=== PATIENT | female | born 1960 | race Caucasian/White ===

== ENCOUNTER 2019-10-05 10:26 | Inpatient (IN) | payer MEDICARE, MEDICAID ==
[~2019-10-05] VITALS: Ht 167.6 cm; Wt 80.6 kg
[2019-10-05 14:25] VITALS: BP 125/73
[2019-10-05] MEDS ORDERED: HALOPERIDOL 5 MG TABLET PO PRN (14:30)
[2019-10-05] MEDS ORDERED: LORazepam 2 MG TABLET PO PRN (14:30)
[2019-10-05] MEDS ORDERED: ZOLPIDEM TARTRATE 10 MG TABLET PO PRN (14:30)
[2019-10-05] MEDS: OLANZapine 5 MG TABLET PO SCH (16:30)
[2019-10-05 17:34] VITALS: BP 111/64
[2019-10-05] MEDS ORDERED: ONDANSETRON HCL 4 MG TABLET PO PRN (21:00)
[2019-10-05] MEDS ORDERED: CloNIDine HCL 0.1 MG TABLET PO PRN (21:00)
[2019-10-05] MEDS ORDERED: ACETAMINOPHEN 325 MG TABLET PO PRN (21:00)
[2019-10-05] MEDS ORDERED: GuaiFENesin/D-METHORPHAN [SUGAR-FREE] 200-20MG/10 ML SYRUP UDCUP PO PRN (21:00)
[2019-10-05] MEDS ORDERED: DOCUSATE SODIUM 100 MG CAPSULE PO PRN (21:00)
[2019-10-05] MEDS ORDERED: PETROLATUM,WHITE 28 GM JELLY TP PRN (21:00)
[2019-10-05] MEDS ORDERED: NICOTINE 14 MG/24 HOUR PATCH TD PRN (21:00)
[2019-10-05] MEDS ORDERED: IBUPROFEN 400 MG TABLET PO PRN (21:00)
[2019-10-05] MEDS ORDERED: MAG HYDROX/AL HYDROX/SIMETH ES 30 ML SUSPENSION UDCUP PO PRN (21:00)
[2019-10-05] MEDS ORDERED: ALBUTEROL SULFATE HFA 90 MCG/PUFF 8 GM INHALER IH PRN (21:00)
[2019-10-05] MEDS ORDERED: MAGNESIUM HYDROXIDE SUSPENSION 30 ML UDCUP PO PRN (21:00)
[2019-10-05] MEDS ORDERED: LOPERAMIDE HCL 2 MG CAPSULE PO PRN (21:00)
[2019-10-06 05:37] LABS: GLUCOMETER DEV NAME(LOC) 3E.I 2; GLUCOSE,POINT OF CARE 117 MG/DL (70-110)
[2019-10-06 08:00] VITALS: BP 119/83
[2019-10-06 08:41] LABS: CHOL/HDL RATIO 4.9 (3.9-5.7); FREE T4 (FREE THYROXINE) 1.3 ng/dL (0.76-1.46); THYROID STIMULATING HORMONE 1.24 uIU/mL (0.36-3.74)
[2019-10-06] MEDS: OLANZapine 5 MG TABLET PO SCH ×2 (09:02→16:55)
[2019-10-06] MEDS ORDERED: ONDANSETRON HCL 4 MG TABLET PO PRN (19:15)
[2019-10-06] MEDS ORDERED: DOCUSATE SODIUM 100 MG CAPSULE PO PRN (19:15)
[2019-10-06] MEDS ORDERED: IBUPROFEN 400 MG TABLET PO PRN (19:15)
[2019-10-06] MEDS ORDERED: CloNIDine HCL 0.1 MG TABLET PO PRN (19:15)
[2019-10-06] MEDS ORDERED: ACETAMINOPHEN 325 MG TABLET PO PRN (19:15)
[2019-10-06] MEDS ORDERED: GuaiFENesin/D-METHORPHAN [SUGAR-FREE] 200-20MG/10 ML SYRUP UDCUP PO PRN (19:15)
[2019-10-06] MEDS ORDERED: LOPERAMIDE HCL 2 MG CAPSULE PO PRN (19:15)
[2019-10-06] MEDS ORDERED: ALBUTEROL SULFATE HFA 90 MCG/PUFF 8 GM INHALER IH PRN (19:15)
[2019-10-06] MEDS ORDERED: NICOTINE 14 MG/24 HOUR PATCH TD PRN (19:15)
[2019-10-06] MEDS ORDERED: PETROLATUM,WHITE 28 GM JELLY TP PRN (19:15)
[2019-10-06] MEDS ORDERED: MAGNESIUM HYDROXIDE SUSPENSION 30 ML UDCUP PO PRN (19:15)
[2019-10-06] MEDS ORDERED: MAG HYDROX/AL HYDROX/SIMETH ES 30 ML SUSPENSION UDCUP PO PRN (19:15)
[2019-10-06 20:44] VITALS: BP 130/66
[2019-10-07] MEDS: OLANZapine 5 MG TABLET PO SCH ×2 (08:52→17:00)
[2019-10-07 09:56] VITALS: BP 110/66
[2019-10-07] MEDS ORDERED: OLAN5TAB27 PO (15:00)
== END 2019-10-07 16:30 | disposition home or self-care (01) | DRG 885 ==
LOC: 3EX 13:15
PROVIDERS: ADMIT Psychiatry & Neurology Child & Adolescent Psychiatry; ATTEND Psychiatry & Neurology Child & Adolescent Psychiatry
DX: F31.64 Bipolar disorder, current episode mixed, severe, with psychotic features (principal); E78.5 Hyperlipidemia, unspecified; F10.20 Alcohol dependence, uncomplicated; R73.9 Hyperglycemia, unspecified; F19.10 Other psychoactive substance abuse, uncomplicated; Z71.51 Drug abuse counseling and surveillance of drug abuser; Z71.41 Alcohol abuse counseling and surveillance of alcoholic
CPT/HCPCS: 84439; 84443; 87081; G0378